=== PATIENT | female | born 1960 | race Two or more races ===

== ENCOUNTER 2021-09-28 05:10 | Inpatient (IN) | payer MEDICAID, OTHER ==
[~2021-09-28] VITALS: Ht 154.9 cm; Wt 57.5 kg
[2021-09-28] MEDS ORDERED: SODIUM CHLORIDE 0.9% 1,000 ML IV ONE (05:30)
[2021-09-28 05:59] LABS: Red Blood Cells 4.37 10^6/uL (4.0-5.20)
[2021-09-28 06:02] LABS: Hematocrit 41.9 % (36.0-46.0); Hemoglobin 12.4 g/dL (12.2-16.2); Mean Corpuscular Hemoglobin 28.5 pg (28.0-32.0); Mean Corpuscular Hgb Conc. 29.7 g/dL (32.0-36.0); Mean Corpuscular Volume 95.8 fL (80.0-100.0); Red Cell Distribution Width 15.2 % (11.8-14.3); White Blood Cell 25.8 10^3/uL (4.4-10.8)
[2021-09-28 06:25] LABS: Albumin 3.4 g/dL (3.4-5.0); Calcium 8.5 mg/dL (8.5-10.1); Potassium 5.5 mmol/L (3.5-5.1)
[2021-09-28 06:33] LABS: Bilirubin, Total 0.7 mg/dL (0.2-1.0)
[2021-09-28 06:47] LABS: Basophils % (manual) 0 (0.0-2.0); Blast Cells 0; Eosinophils % (manual) 0 (0-7); Metamyelocytes % 0; Myelocytes % 0; Promyelocytes % 0; Reactive Lymphocytes 0
[2021-09-28 06:56] LABS: Band Neutrophils % (manual) 10; Lymphocytes % (manual) 9 (10.0-50.0); Monocytes % (manual) 7 (0-12)
[2021-09-28] MEDS ORDERED: SODIUM CHLORIDE 0.9% 1,000 ML IVB ONE (07:15)
[2021-09-28] MEDS ORDERED: DEXTROSE (50%) 50ML SYRG IV PRN (07:15)
[2021-09-28] MEDS ORDERED: INSULIN LANTUS (GLARGINE) 1 /0.01ml (100units/ml) SC ONE (07:15)
[2021-09-28] MEDS: ACCU-CHEK COMFORT CURVE STRIP VI SCH ×11 (08:30→23:42)
[2021-09-28] MEDS: InsuLIN R (HUMAN) 100 UNITS in SODIUM CHL 0.9% 99 ML IV SCH ×2 (08:30→15:13)
[2021-09-28 08:51] LABS: Magnesium 3.1 mg/dL (1.6-2.6); Phosphorus 8.8 mg/dL (2.5-4.90)
[2021-09-28] MEDS: SODIUM CHLORIDE 0.9% 1,000 ML IV SCH ×4 (09:15→19:04)
[2021-09-28 09:40] LABS: Alcohol, Urine < 3.0 mg/dL (0-10); Amphetamine Screen, Urine NEGATIVE (NEGATIVE); Barbiturate Scree,Urine NEGATIVE (NEGATIVE); Benzodiazephine Screen, Urine NEGATIVE (NEGATIVE); Cannabinoid Screen, Urine NEGATIVE (NEGATIVE); Cocaine Screen, Urine NEGATIVE (NEGATIVE); Opiate Scree,Urine NEGATIVE (NEGATIVE); Phencyclidine Screen, Urine NEGATIVE (NEGATIVE)
[2021-09-28 09:42] LABS: Urine Bacteria NONE SEEN /hpf (None Seen); Urine Blood Negative /uL (Negative); Urine Specific Gravity 1.021 (1.001-1.035); Urine WBC <1 /hpf (0 - 5)
[2021-09-28] MEDS ORDERED: SODIUM CHLORIDE 0.9% 1,000 ML IV SCH ×2 (11:15→13:15)
[2021-09-28] MEDS ORDERED: LACTATED RINGER'S 2,000 ML IV ONE (13:45)
[2021-09-28] MEDS ORDERED: SOD CHL 0.9%/ KCL 40MEQ 1,000 ML IV PRN (13:45)
[2021-09-28] MEDS ORDERED: SODIUM CHLORIDE 0.9% 2,000 ML IV ONE (13:45)
[2021-09-28] MEDS ORDERED: D5W/SOD CHLO 0.9% 1,000 ML IV PRN (13:45)
[2021-09-28 13:59] LABS: Calcium 7.8 mg/dL (8.5-10.1); Potassium 3.9 mmol/L (3.5-5.1)
[2021-09-28] MEDS ORDERED: MEROPENEM 1GM IVPB 100 ML IV ONE (14:00)
[2021-09-28] MEDS ORDERED: NITROGLYCERIN 0.4 MG SL TAB SL PRN ×2 (14:00→18:30)
[2021-09-28] MEDS ORDERED: MORPHINE SULFATE INJECTION 2 MG/ML SYRG IV PRN ×2 (14:00→18:30)
[2021-09-28] MEDS ORDERED: PROCHLORPERAZINE EDISYLATE 5 MG/ML 2ML VIAL ONE (14:03)
[2021-09-28 14:08] LABS: BUN/Creatinine Ratio 30.7
[2021-09-28] MEDS ORDERED: InsuLIN REG 1unit/0.01ml Soln (100units/ml) IV ONE (14:15)
[2021-09-28] MEDS ORDERED: PROCHLORPERAZINE EDISYLATE 5 MG/ML 2ML VIAL IV ONE (14:15)
[2021-09-28] MEDS ORDERED: LISI40TA11 PO (15:39)
[2021-09-28] MEDS ORDERED: ASPI1TAB20 PO (15:39)
[2021-09-28] MEDS ORDERED: HYDR-4072 PO (15:39)
[2021-09-28] MEDS ORDERED: INSU100I61 SC (15:39)
[2021-09-28] MEDS ORDERED: HYDR50TA69 PO (15:39)
[2021-09-28] MEDS ORDERED: PREG-110 PO (15:39)
[2021-09-28] MEDS ORDERED: INSU1INJ19 SC (15:39)
[2021-09-28] MEDS ORDERED: AMLO-496 PO (15:39)
[2021-09-28] MEDS ORDERED: MORPHINE SULFATE 4 MG/ML SYR/VIAL IV PRN (17:45)
[2021-09-28] MEDS ORDERED: ONDANSETRON HCL 4 MG/2 ML VIAL ONE (17:53)
[2021-09-28] MEDS ORDERED: MORPHINE SULFATE 4 MG/ML SYR/VIAL ONE (17:53)
[2021-09-28] MEDS ORDERED: SUCRALFATE 1 GM/10 ML ORAL SUSP PO ONE (18:00)
[2021-09-28] MEDS ORDERED: PANTOPRAZOLE 40 MG/10 ML VIAL INJ IV ONE (18:00)
[2021-09-28] MEDS: ONDANSETRON HCL 4 MG/2 ML VIAL IV PRN (18:05)
[2021-09-28] MEDS ORDERED: CALCIUM GLUC 1,000mg/50ml-NS 50 ML IV ONE (18:15)
[2021-09-28] MEDS ORDERED: MAGNESIUM SULFATE 1GM/100ML 100 ML IV ONE (18:15)
[2021-09-28] MEDS ORDERED: ENOXAPARIN SOD 30 MG/0.3 ML SYRINGE SC ONE (18:15)
[2021-09-28] MEDS ORDERED: hydrOXYzine HCL 10 MG TAB PO PRN (18:30)
[2021-09-28] MEDS ORDERED: METOCLOPRAMIDE HCL 5MG/ml INJ 2ml VIAL IV PRN ×2 (18:30→18:45)
[2021-09-28] MEDS ORDERED: ALUM & MAG HYDROX-SIMETH LIQ(MAALOX) 30 ML PO PRN (18:30)
[2021-09-28] MEDS ORDERED: LORazepam 0.5 MG TAB PO PRN (18:30)
[2021-09-28] MEDS ORDERED: DOCUSATE SOD 100 MG CAP PO PRN (18:30)
[2021-09-28 19:25] LABS: Cholesterol 181 mg/dL (< 200)
[2021-09-28 19:28] LABS: HDL Cholesterol 30 mg/dL (40-59); Triglycerides 516 mg/dL (< 150)
[2021-09-28] MEDS ORDERED: HALOPERIDOL LACTATE 5 MG/ML INJ VIAL IM ONE (19:30)
[2021-09-28] MEDS ORDERED: LORazepam 2MG/ML-1ML VIAL IV ONE (19:30)
[2021-09-28 19:32] LABS: Alanine Aminotransferase 24 U/L (13-56); Albumin 2.7 g/dL (3.4-5.0); Anion Gap 12 (5-15); Aspartate Aminotransferase 29 U/L (15-37); Blood Urea Nitrogen 74 mg/dL (7-18); Calcium 6.8 mg/dL (8.5-10.1); Carbon Dioxide 22 mmol/L (21-32); Chloride 111 mmol/L (98-107); GFR African American 29 mL/min; GFR Non-African American 24 mL/min; Sodium 145 mmol/L (136-145)
[2021-09-28 20:08] LABS: Basophils # (auto) 0 10 ^3/uL (0-0.2); Basophils % (auto) 0.4 % (0.0-2.0); Eosinophils # (auto) 0 10 ^3/uL (0-0.8); Eosinophils % (auto) 0.1 % (0.0-7.0); Hematocrit 30.9 % (36.0-46.0); Hemoglobin 10.7 g/dL (12.2-16.2); Lymphocytes # (auto) 0.6 10 ^3/uL (0.4-5.4); Mean Corpuscular Hgb Conc. 34.6 g/dL (32.0-36.0); Mean Corpuscular Volume 83.9 fL (80.0-100.0); Monocytes # (auto) 0.7 10 ^3/uL (0-1.3); Monocytes % (auto) 7.9 % (0.0-12.0); Neutrophils # (auto) 7.7 10 ^3/uL (1.6-8.6); Neutrophils % (auto) 84.6 % (37.0-80.0); Nucleated Red Blood Cells % 0.1 %; Red Blood Cells 3.69 10^6/uL (4.0-5.20); Red Cell Distribution Width 13.5 % (11.8-14.3); White Blood Cell 9.1 10^3/uL (4.4-10.8)
[2021-09-28 20:36] LABS: Alkaline Phosphatase 88 U/L (45-117); Bilirubin, Total 0.3 mg/dL (0.2-1.0); Glucose 439 mg/dL (74-106); Total Protein 5.4 g/dL (6.4-8.2)
[2021-09-28 22:23] LABS: Calcium 7.4 mg/dL (8.5-10.1); Potassium 3.7 mmol/L (3.5-5.1)
[2021-09-28 22:34] LABS: BUN/Creatinine Ratio 38.9
[2021-09-28] MEDS: PANTOPRAZOLE 40 MG/10 ML VIAL INJ IV SCH (23:18)
[2021-09-28] MEDS: ATORVASTATIN 20 MG TAB PO SCH (23:36)
[2021-09-28] MEDS: SUCRALFATE 1 GM/10 ML ORAL SUSP PO SCH (23:36)
[2021-09-28] MEDS: GABAPENTIN 300 MG CAP PO SCH (23:36)
[2021-09-29 00:19] LABS: INR 1.17 (0.9-1.15); Partial Thromboplastin Time 23.2 sec (23.6-33.0)
[2021-09-29] MEDS: SODIUM CHLORIDE 0.9% 1,000 ML IV SCH ×4 (00:49→19:45)
[2021-09-29] MEDS: ACCU-CHEK COMFORT CURVE STRIP VI SCH ×8 (01:15→10:25)
[2021-09-29 02:56] LABS: Calcium 7.8 mg/dL (8.5-10.1); Potassium 3.5 mmol/L (3.5-5.1)
[2021-09-29 03:07] LABS: BUN/Creatinine Ratio 42.9
[2021-09-29] MEDS: LORazepam 2MG/ML-1ML VIAL IV PRN (06:14)
[2021-09-29] MEDS: SUCRALFATE 1 GM/10 ML ORAL SUSP PO SCH ×4 (07:33→23:30)
[2021-09-29] MEDS: HALOPERIDOL LACTATE 5 MG/ML INJ VIAL IM PRN (07:58)
[2021-09-29] MEDS: CALCIUM W/VIT D (600MG/400IU) TAB PO SCH ×2 (08:34→18:26)
[2021-09-29] MEDS: SEVELAMER 800 MG TAB PO SCH ×3 (08:34→18:26)
[2021-09-29] MEDS ORDERED: BENAZEPRIL HCL 10 MG TAB PO SCH (10:00)
[2021-09-29] MEDS ORDERED: ENOXAPARIN SOD 30 MG/0.3 ML SYRINGE SC SCH (10:00)
[2021-09-29] MEDS ORDERED: INSULIN LANTUS (GLARGINE) 1 /0.01ml (100units/ml) SC SCH (10:00)
[2021-09-29] MEDS ORDERED: MIDAZOLAM DRIP 50 mg/50mL 50 ML IV ONE (10:04)
[2021-09-29] MEDS ORDERED: ETOMIDATE (2MG/ML) 20ML VIAL IV ONE ×2 (10:04→10:14)
[2021-09-29] MEDS ORDERED: SUCCINYLCHOLINE CHLORIDE 20 MG/ML 10ML VIAL IV ONE ×2 (10:04→10:15)
[2021-09-29 10:15] VITALS: BP 168/83
[2021-09-29] MEDS: MIDAZOLAM DRIP 50 mg/50mL 50 ML IV SCH ×2 (10:30→11:30)
[2021-09-29] MEDS ORDERED: fentaNYL Drip 2500mCg/250mlNS 250 ML IV ONE (10:31)
[2021-09-29] MEDS: InsuLIN R (HUMAN) 100 UNITS in SODIUM CHL 0.9% 99 ML IV SCH (10:32)
[2021-09-29 12:00] VITALS: BP 130/56
[2021-09-29] MEDS ORDERED: DEXTROSE (50%) 50ML SYRG IV PRN (12:15)
[2021-09-29 12:34] LABS: Hematocrit 29.1 % (36.0-46.0); Hemoglobin 9.9 g/dL (12.2-16.2); Mean Corpuscular Hemoglobin 28.4 pg (28.0-32.0); Mean Corpuscular Hgb Conc. 33.9 g/dL (32.0-36.0); Mean Corpuscular Volume 83.8 fL (80.0-100.0); Red Blood Cells 3.47 10^6/uL (4.0-5.20); Red Cell Distribution Width 13.7 % (11.8-14.3); White Blood Cell 7.1 10^3/uL (4.4-10.8)
[2021-09-29 12:35] LABS: Basophils % (manual) 0 (0.0-2.0); Blast Cells 0; Eosinophils % (manual) 0 (0-7); Promyelocytes % 0; Reactive Lymphocytes 0
[2021-09-29 12:52] LABS: Calcium 7.5 mg/dL (8.5-10.1); Magnesium 2.6 mg/dL (1.6-2.6); Potassium 3.9 mmol/L (3.5-5.1)
[2021-09-29 12:58] LABS: Albumin 2.5 g/dL (3.4-5.0); BUN/Creatinine Ratio 52.8; Bilirubin, Total 0.4 mg/dL (0.2-1.0); Phosphorus 1.9 mg/dL (2.5-4.90); Total Protein 4.9 g/dL (6.4-8.2); Uric Acid 10.8 mg/dL (2.6-6.0)
[2021-09-29 13:01] LABS: % Iron Saturation 13.5 % (15-50)
[2021-09-29] MEDS: ASPirin 81 mg TAB PO SCH (13:13)
[2021-09-29] MEDS: GABAPENTIN 300 MG CAP PO SCH ×2 (13:13→23:30)
[2021-09-29] MEDS: levoFLOXacin 250MG 50 ML IV SCH (13:13)
[2021-09-29] MEDS: PANTOPRAZOLE 40 MG/10 ML VIAL INJ IV SCH ×2 (13:13→23:30)
[2021-09-29 13:52] LABS: Band Neutrophils % (manual) 24; Lymphocytes % (manual) 10 (10.0-50.0); Metamyelocytes % 3; Monocytes % (manual) 4 (0-12); Myelocytes % 2
[2021-09-29 14:02] VITALS: BP 127/58
[2021-09-29 16:05] VITALS: BP 18/56
[2021-09-29] MEDS: InsuLIN REG 1unit/0.01ml Soln (100units/ml) SC SCH (18:31)
[2021-09-29 18:55] VITALS: BP 127/66
[2021-09-29] MEDS: fentaNYL Drip 2500mCg/250mlNS 250 ML IV SCH (19:45)
[2021-09-29] MEDS ORDERED: InsuLIN REG 1unit/0.01ml Soln (100units/ml) SC SCH (22:00)
[2021-09-29] MEDS ORDERED: POTASSIUM PHOSPHATE 44 MEQ in D5W 5% 250 ML IV ONE (22:15)
[2021-09-29 22:40] VITALS: BP 135/70
[2021-09-29] MEDS: D5W/SOD CHL 0.45% 1,000 ML IV SCH (22:45)
[2021-09-29] MEDS: ATORVASTATIN 20 MG TAB PO SCH (23:30)
[2021-09-30] VITALS (11 sets, daily range): BP systolic 95–146; BP diastolic 54–71
[2021-09-30] MEDS: InsuLIN REG 1unit/0.01ml Soln (100units/ml) SC SCH ×4 (06:52→23:49)
[2021-09-30] MEDS: SUCRALFATE 1 GM/10 ML ORAL SUSP PO SCH ×4 (07:16→23:48)
[2021-09-30] MEDS: SEVELAMER 800 MG TAB PO SCH ×3 (08:00→17:44)
[2021-09-30] MEDS: CALCIUM W/VIT D (600MG/400IU) TAB PO SCH ×2 (08:00→18:00)
[2021-09-30 09:10] LABS: Anion Gap 10 (5-15); BUN/Creatinine Ratio 36.8; Blood Urea Nitrogen 60 mg/dL (7-18); Calcium 6.6 mg/dL (8.5-10.1); Carbon Dioxide 21 mmol/L (21-32); Chloride 116 mmol/L (98-107); GFR African American 42 mL/min; GFR Non-African American 34 mL/min; Potassium 4.8 mmol/L (3.5-5.1); Sodium 147 mmol/L (136-145)
[2021-09-30 09:16] LABS: Glucose 457 mg/dL (74-106)
[2021-09-30] MEDS: levoFLOXacin 250MG 50 ML IV SCH (10:00)
[2021-09-30] MEDS: GABAPENTIN 300 MG CAP PO SCH ×2 (10:27→23:48)
[2021-09-30] MEDS: PANTOPRAZOLE 40 MG/10 ML VIAL INJ IV SCH ×2 (10:27→23:45)
[2021-09-30] MEDS: ASPirin 81 mg TAB PO SCH (10:28)
[2021-09-30] MEDS: D5W/SOD CHL 0.45% 1,000 ML IV SCH (11:35)
[2021-09-30 13:54] LABS: Mean Corpuscular Hgb Conc. 34.6 g/dL (32.0-36.0)
[2021-09-30 13:56] LABS: Hematocrit 25.9 % (36.0-46.0); Mean Corpuscular Hemoglobin 30.1 pg (28.0-32.0); Mean Corpuscular Volume 86.9 fL (80.0-100.0); Red Blood Cells 2.99 10^6/uL (4.0-5.20); Red Cell Distribution Width 13.8 % (11.8-14.3); White Blood Cell 7.5 10^3/uL (4.4-10.8)
[2021-09-30] MEDS: MIDAZOLAM DRIP 50 mg/50mL 50 ML IV SCH (14:05)
[2021-09-30 14:07] LABS: Basophils % (manual) 0 (0.0-2.0); Blast Cells 0; Eosinophils % (manual) 0 (0-7); Metamyelocytes % 0; Myelocytes % 0; Promyelocytes % 0; Reactive Lymphocytes 0
[2021-09-30 15:13] LABS: Band Neutrophils % (manual) 13; Lymphocytes % (manual) 12 (10.0-50.0); Monocytes % (manual) 8 (0-12)
[2021-09-30] MEDS: fentaNYL Drip 2500mCg/250mlNS 250 ML IV SCH (19:45)
[2021-09-30] MEDS ORDERED: DEXTROSE (50%) 50ML SYRG IV PRN (20:15)
[2021-09-30] MEDS: INSULIN LANTUS (GLARGINE) 1 /0.01ml (100units/ml) SC SCH (23:46)
[2021-09-30] MEDS: ATORVASTATIN 20 MG TAB PO SCH (23:48)
[2021-09-30] MEDS: ACCU-CHEK COMFORT CURVE STRIP VI SCH (23:49)
[2021-09-30] MEDS: LACTATED RINGER'S 1,000 ML IV SCH (23:51)
[2021-10-01] VITALS (10 sets, daily range): BP systolic 94–142; BP diastolic 54–75
[2021-10-01] MEDS: ACCU-CHEK COMFORT CURVE STRIP VI SCH ×5 (04:14→20:41)
[2021-10-01] MEDS: InsuLIN REG 1unit/0.01ml Soln (100units/ml) SC SCH ×5 (04:15→20:41)
[2021-10-01] MEDS ORDERED: NOREPINEPHRINE 8 MG/250ML KIT 250 ML IV ONE (05:09)
[2021-10-01] MEDS: NOREPINEPHRINE 8 MG/250ML KIT 250 ML IV SCH (05:25)
[2021-10-01] MEDS: SUCRALFATE 1 GM/10 ML ORAL SUSP PO SCH ×4 (07:45→22:45)
[2021-10-01] MEDS: CALCIUM W/VIT D (600MG/400IU) TAB PO SCH ×2 (07:45→18:02)
[2021-10-01 07:47] LABS: BUN/Creatinine Ratio 25.1; Calcium 7.5 mg/dL (8.5-10.1); Potassium 3.8 mmol/L (3.5-5.1)
[2021-10-01] MEDS: ASPirin 81 mg TAB PO SCH (10:48)
[2021-10-01] MEDS: PANTOPRAZOLE 40 MG/10 ML VIAL INJ IV SCH ×2 (10:48→22:45)
[2021-10-01] MEDS: GABAPENTIN 300 MG CAP PO SCH ×2 (10:48→22:45)
[2021-10-01] MEDS: levoFLOXacin 250MG 50 ML IV SCH (10:48)
[2021-10-01] MEDS: LACTATED RINGER'S 1,000 ML IV SCH (16:01)
[2021-10-01] MEDS: D5W 5% 1,000 ML IV SCH (16:30)
[2021-10-01 18:38] LABS: Urine Bacteria NONE SEEN /hpf (None Seen); Urine Blood 3+ /uL (Negative); Urine Budding Yeast MANY /hpf (None Seen); Urine Hyaline Cast FEW /lpf (0 - 2); Urine WBC 7 /hpf (0 - 5)
[2021-10-01 18:46] LABS: Protein, Urine 97.2 mg/dL (0.0-11.9)
[2021-10-01] MEDS: MIDAZOLAM DRIP 50 mg/50mL 50 ML IV SCH (19:41)
[2021-10-01] MEDS: ATORVASTATIN 20 MG TAB PO SCH (22:45)
[2021-10-01] MEDS: INSULIN LANTUS (GLARGINE) 1 /0.01ml (100units/ml) SC SCH (22:45)
[2021-10-02] MEDS: ACCU-CHEK COMFORT CURVE STRIP VI SCH ×6 (02:29→21:24)
[2021-10-02] MEDS: InsuLIN REG 1unit/0.01ml Soln (100units/ml) SC SCH ×6 (02:30→21:25)
[2021-10-02] MEDS: MIDAZOLAM DRIP 50 mg/50mL 50 ML IV SCH (02:32)
[2021-10-02 02:40] VITALS: BP 143/74
[2021-10-02] MEDS: D5W 5% 1,000 ML IV SCH ×3 (02:58→22:14)
[2021-10-02] MEDS: fentaNYL Drip 2500mCg/250mlNS 250 ML IV SCH ×2 (05:05→19:45)
[2021-10-02 06:47] VITALS: BP 143/77
[2021-10-02 07:30] LABS: Potassium 4.2 mmol/L (3.5-5.1)
[2021-10-02 07:37] LABS: BUN/Creatinine Ratio 25.4; Calcium 7.6 mg/dL (8.5-10.1)
[2021-10-02] MEDS: SUCRALFATE 1 GM/10 ML ORAL SUSP PO SCH ×4 (07:51→22:12)
[2021-10-02] MEDS: NOREPINEPHRINE 8 MG/250ML KIT 250 ML IV SCH (08:00)
[2021-10-02] MEDS: CALCIUM W/VIT D (600MG/400IU) TAB PO SCH ×2 (08:20→17:43)
[2021-10-02] MEDS: ASPirin 81 mg TAB PO SCH (10:34)
[2021-10-02] MEDS: levoFLOXacin 250MG 50 ML IV SCH (10:34)
[2021-10-02] MEDS: PANTOPRAZOLE 40 MG/10 ML VIAL INJ IV SCH ×2 (10:34→22:12)
[2021-10-02] MEDS: GABAPENTIN 300 MG CAP PO SCH ×2 (10:34→22:13)
[2021-10-02 10:50] VITALS: BP 125/72
[2021-10-02 13:49] VITALS: BP 94/57
[2021-10-02 18:10] VITALS: BP 98/62
[2021-10-02 22:12] VITALS: BP 142/76
[2021-10-02] MEDS: INSULIN LANTUS (GLARGINE) 1 /0.01ml (100units/ml) SC SCH (22:13)
[2021-10-02] MEDS: ATORVASTATIN 20 MG TAB PO SCH (22:13)
[2021-10-03] MEDS: ACCU-CHEK COMFORT CURVE STRIP VI SCH ×6 (00:14→19:30)
[2021-10-03] MEDS: InsuLIN REG 1unit/0.01ml Soln (100units/ml) SC SCH ×6 (00:17→19:29)
[2021-10-03] MEDS: NOREPINEPHRINE 8 MG/250ML KIT 250 ML IV SCH (05:15)
[2021-10-03] MEDS: SUCRALFATE 1 GM/10 ML ORAL SUSP PO SCH ×4 (05:23→22:20)
[2021-10-03 06:32] VITALS: BP 122/72
[2021-10-03 09:14] LABS: BUN/Creatinine Ratio 25.3; Calcium 7.7 mg/dL (8.5-10.1); Potassium 4.4 mmol/L (3.5-5.1)
[2021-10-03 10:25] VITALS: BP 128/68
[2021-10-03] MEDS: CALCIUM W/VIT D (600MG/400IU) TAB PO SCH ×2 (10:47→17:34)
[2021-10-03] MEDS: D5W 5% 1,000 ML IV SCH ×2 (10:48→17:34)
[2021-10-03] MEDS: levoFLOXacin 250MG 50 ML IV SCH (10:48)
[2021-10-03] MEDS: FLUCONAZOLE 200MG/100ML 100 ML IV SCH ×2 (10:48→11:14)
[2021-10-03] MEDS: GABAPENTIN 300 MG CAP PO SCH ×2 (10:49→22:21)
[2021-10-03] MEDS: PANTOPRAZOLE 40 MG/10 ML VIAL INJ IV SCH ×2 (10:49→22:20)
[2021-10-03] MEDS: ASPirin 81 mg TAB PO SCH (10:49)
[2021-10-03] MEDS: MIDAZOLAM DRIP 50 mg/50mL 50 ML IV SCH (11:24)
[2021-10-03 12:58] LABS: Hematocrit 30.7 % (36.0-46.0); Hemoglobin 10.3 g/dL (12.2-16.2); Mean Corpuscular Hemoglobin 28.8 pg (28.0-32.0); Mean Corpuscular Hgb Conc. 33.5 g/dL (32.0-36.0); Mean Corpuscular Volume 86.1 fL (80.0-100.0); Red Blood Cells 3.56 10^6/uL (4.0-5.20); White Blood Cell 7.5 10^3/uL (4.4-10.8)
[2021-10-03 13:02] LABS: Basophils % (manual) 0 (0.0-2.0); Blast Cells 0; Eosinophils % (manual) 0 (0-7); Metamyelocytes % 0; Myelocytes % 0; Promyelocytes % 0; Reactive Lymphocytes 0
[2021-10-03 13:42] LABS: Band Neutrophils % (manual) 3; Lymphocytes % (manual) 15 (10.0-50.0); Monocytes % (manual) 3 (0-12)
[2021-10-03 13:50] VITALS: BP 148/83
[2021-10-03 18:29] VITALS: BP 177/78
[2021-10-03] MEDS ORDERED: GABAPENTIN 300 MG CAP ONE (22:19)
[2021-10-03] MEDS ORDERED: ATORVASTATIN 20 MG TAB ONE (22:19)
[2021-10-03] MEDS ORDERED: PANTOPRAZOLE 40 MG/10 ML VIAL INJ IV ONE (22:20)
[2021-10-03] MEDS ORDERED: INSULIN LANTUS (GLARGINE) 1 /0.01ml (100units/ml) SC ONE (22:20)
[2021-10-03] MEDS ORDERED: SUCRALFATE 1 GM/10 ML ORAL SUSP ONE (22:20)
[2021-10-03] MEDS: ATORVASTATIN 20 MG TAB PO SCH (22:20)
[2021-10-03] MEDS: INSULIN LANTUS (GLARGINE) 1 /0.01ml (100units/ml) SC SCH (22:22)
[2021-10-03 22:24] VITALS: BP 150/80
[2021-10-04] VITALS (14 sets, daily range): BP systolic 109–178; BP diastolic 57–108
[2021-10-04] MEDS: ACCU-CHEK COMFORT CURVE STRIP VI SCH ×6 (00:19→21:03)
[2021-10-04] MEDS: InsuLIN REG 1unit/0.01ml Soln (100units/ml) SC SCH ×6 (00:20→21:05)
[2021-10-04] MEDS ORDERED: DexmedeTOMIDine 4 ML IV ONE (04:05)
[2021-10-04] MEDS: D5W 5% 1,000 ML IV SCH ×2 (04:57→18:23)
[2021-10-04] MEDS ORDERED: LORazepam 2MG/ML-1ML VIAL ONE (06:00)
[2021-10-04] MEDS: LORazepam 2MG/ML-1ML VIAL IV PRN ×2 (06:00→21:02)
[2021-10-04] MEDS ORDERED: MIDAZOLAM HCL 10 ML IV ONE (06:24)
[2021-10-04] MEDS: SUCRALFATE 1 GM/10 ML ORAL SUSP PO SCH ×5 (07:00→21:28)
[2021-10-04 08:33] LABS: Potassium 3.7 mmol/L (3.5-5.1)
[2021-10-04 08:41] LABS: BUN/Creatinine Ratio 27.7; Calcium 7.4 mg/dL (8.5-10.1)
[2021-10-04] MEDS: FLUCONAZOLE 200MG/100ML 100 ML IV SCH ×2 (11:00→12:06)
[2021-10-04] MEDS: CALCIUM W/VIT D (600MG/400IU) TAB PO SCH ×2 (12:06→18:00)
[2021-10-04] MEDS: PANTOPRAZOLE 40 MG/10 ML VIAL INJ IV SCH ×2 (12:07→22:00)
[2021-10-04] MEDS: ASPirin 81 mg TAB PO SCH (12:07)
[2021-10-04] MEDS: levoFLOXacin 250MG 50 ML IV SCH (12:07)
[2021-10-04] MEDS: GABAPENTIN 300 MG CAP PO SCH ×2 (12:08→22:00)
[2021-10-04] MEDS: MIDAZOLAM DRIP 50 mg/50mL 50 ML IV SCH (18:20)
[2021-10-04] MEDS: HALOPERIDOL LACTATE 5 MG/ML INJ VIAL IM PRN (20:01)
[2021-10-04] MEDS: ATORVASTATIN 20 MG TAB PO SCH (22:00)
[2021-10-04] MEDS: INSULIN LANTUS (GLARGINE) 1 /0.01ml (100units/ml) SC SCH (22:00)
[2021-10-04] MEDS ORDERED: PROPOFOL 100 ML IV ONE (23:34)
[2021-10-05] MEDS: ACCU-CHEK COMFORT CURVE STRIP VI SCH ×6 (00:27→21:06)
[2021-10-05] MEDS: InsuLIN REG 1unit/0.01ml Soln (100units/ml) SC SCH ×6 (00:29→20:44)
[2021-10-05] MEDS: D5W 5% 1,000 ML IV SCH ×2 (00:32→10:30)
[2021-10-05] MEDS ORDERED: PROPOFOL 100 ML IV SCH (00:45)
[2021-10-05 02:00] VITALS: BP 131/87
[2021-10-05] MEDS ORDERED: DexmedeTOMIDine 4 ML IV ONE (04:43)
[2021-10-05 06:35] VITALS: BP 144/68
[2021-10-05] MEDS: SUCRALFATE 1 GM/10 ML ORAL SUSP PO SCH ×4 (07:00→23:02)
[2021-10-05] MEDS: LORazepam 2MG/ML-1ML VIAL IV PRN ×2 (07:46→20:25)
[2021-10-05] MEDS: CALCIUM W/VIT D (600MG/400IU) TAB PO SCH ×2 (07:46→16:34)
[2021-10-05 07:55] LABS: Calcium 8.1 mg/dL (8.5-10.1); Potassium 3.4 mmol/L (3.5-5.1)
[2021-10-05 10:25] VITALS: BP 125/93
[2021-10-05] MEDS: MIDAZOLAM DRIP 50 mg/50mL 50 ML IV SCH (10:30)
[2021-10-05] MEDS: FLUCONAZOLE 200MG/100ML 100 ML IV SCH (11:15)
[2021-10-05] MEDS: ASPirin 81 mg TAB PO SCH (11:15)
[2021-10-05] MEDS: PANTOPRAZOLE 40 MG/10 ML VIAL INJ IV SCH ×2 (11:15→23:02)
[2021-10-05] MEDS: levoFLOXacin 250MG 50 ML IV SCH (11:15)
[2021-10-05] MEDS: GABAPENTIN 300 MG CAP PO SCH (11:15)
[2021-10-05] MEDS: HALOPERIDOL LACTATE 5 MG/ML INJ VIAL IM PRN ×2 (11:29→23:14)
[2021-10-05 14:30] VITALS: BP 156/71
[2021-10-05] MEDS ORDERED: Glucerna 1.2 Cal 1Liter BOTTLE GT SCH (17:30)
[2021-10-05 18:44] VITALS: BP 131/65
[2021-10-05] MEDS ORDERED: metroNIDAZOLE 500MG/100ML 100 ML IV SCH (22:00)
[2021-10-05 22:03] VITALS: BP 136/67
[2021-10-05] MEDS: INSULIN LANTUS (GLARGINE) 1 /0.01ml (100units/ml) SC SCH (23:02)
[2021-10-05] MEDS: ATORVASTATIN 20 MG TAB PO SCH (23:12)
[2021-10-06] MEDS: ACCU-CHEK COMFORT CURVE STRIP VI SCH ×6 (00:28→19:46)
[2021-10-06] MEDS: InsuLIN REG 1unit/0.01ml Soln (100units/ml) SC SCH ×6 (00:30→19:45)
[2021-10-06] MEDS: PROPOFOL 100 ML IV SCH (01:11)
[2021-10-06 01:50] VITALS: BP 135/67
[2021-10-06] MEDS: D5W 5% 1,000 ML IV SCH (03:00)
[2021-10-06 05:52] VITALS: BP 148/66
[2021-10-06] MEDS: metroNIDAZOLE 500 MG TAB PO SCH ×3 (06:40→21:44)
[2021-10-06 06:53] LABS: Hematocrit 24.7 % (36.0-46.0); Hemoglobin 8.7 g/dL (12.2-16.2); Mean Corpuscular Hgb Conc. 35.5 g/dL (32.0-36.0); Mean Corpuscular Volume 84.5 fL (80.0-100.0); Red Blood Cells 2.92 10^6/uL (4.0-5.20); Red Cell Distribution Width 13.6 % (11.8-14.3)
[2021-10-06 07:05] LABS: Basophils % (manual) 0 (0.0-2.0); Blast Cells 0; Metamyelocytes % 0; Myelocytes % 0; Promyelocytes % 0; Reactive Lymphocytes 0
[2021-10-06 07:10] LABS: Albumin 1.6 g/dL (3.4-5.0); Calcium 7.7 mg/dL (8.5-10.1); Magnesium 2.2 mg/dL (1.6-2.6); Potassium 3.6 mmol/L (3.5-5.1)
[2021-10-06 07:13] LABS: BUN/Creatinine Ratio 20.7; Bilirubin, Total 0.4 mg/dL (0.2-1.0)
[2021-10-06] MEDS: SUCRALFATE 1 GM/10 ML ORAL SUSP PO SCH ×4 (07:34→21:44)
[2021-10-06 07:41] LABS: Band Neutrophils % (manual) 21; Eosinophils % (manual) 3 (0-7); Lymphocytes % (manual) 14 (10.0-50.0); Monocytes % (manual) 3 (0-12)
[2021-10-06] MEDS: CALCIUM W/VIT D (600MG/400IU) TAB PO SCH ×2 (09:00→18:00)
[2021-10-06] MEDS: hydrALAZINE HCL 20 MG/ML VL IV PRN (09:06)
[2021-10-06] MEDS: LORazepam 2MG/ML-1ML VIAL IV PRN ×2 (10:20→21:47)
[2021-10-06 10:22] VITALS: BP 149/67
[2021-10-06] MEDS: MIDAZOLAM DRIP 50 mg/50mL 50 ML IV SCH (10:30)
[2021-10-06] MEDS: FLUCONAZOLE 200MG/100ML 100 ML IV SCH ×2 (10:40→11:40)
[2021-10-06] MEDS: PANTOPRAZOLE 40 MG/10 ML VIAL INJ IV SCH ×2 (10:40→21:44)
[2021-10-06] MEDS: ASPirin 81 mg TAB PO SCH (10:40)
[2021-10-06] MEDS: levoFLOXacin 250MG 50 ML IV SCH (10:40)
[2021-10-06] MEDS: HALOPERIDOL LACTATE 5 MG/ML INJ VIAL IM PRN (11:20)
[2021-10-06 12:51] LABS: Hepatitis A Ab IgM Negative
[2021-10-06 12:54] LABS: Hepatitis B Core IgM Negative
[2021-10-06] MEDS ORDERED: fentaNYL Drip 2500mCg/250mlNS 250 ML IV SCH (13:15)
[2021-10-06] MEDS ORDERED: fentaNYL Drip 2500mCg/250mlNS 250 ML IV ONE (13:17)
[2021-10-06 13:40] LABS: Hepatitis C Antibody Positive (Negative)
[2021-10-06 14:08] VITALS: BP 153/66
[2021-10-06] MEDS: ATORVASTATIN 20 MG TAB PO SCH (21:44)
[2021-10-06] MEDS: INSULIN LANTUS (GLARGINE) 1 /0.01ml (100units/ml) SC SCH (21:45)
[2021-10-07] MEDS: ACCU-CHEK COMFORT CURVE STRIP VI SCH ×5 (00:39→17:40)
[2021-10-07] MEDS: InsuLIN REG 1unit/0.01ml Soln (100units/ml) SC SCH ×6 (00:39→20:00)
[2021-10-07] MEDS: PROPOFOL 100 ML IV SCH (00:45)
[2021-10-07] MEDS: hydrALAZINE HCL 20 MG/ML VL IV PRN ×3 (01:07→23:41)
[2021-10-07] MEDS ORDERED: METOPROLOL SUCCINATE XL 50 MG TAB PO ONE (02:00)
[2021-10-07] MEDS ORDERED: METOPROLOL TARTRATE 1MG/1ML-5ML VIAL IV ONE ×2 (04:00→10:00)
[2021-10-07] MEDS: CALCIUM W/VIT D (600MG/400IU) TAB PO SCH ×2 (09:45→18:00)
[2021-10-07] MEDS: levoFLOXacin 250MG 50 ML IV SCH (10:00)
[2021-10-07] MEDS ORDERED: METOPROLOL SUCCINATE XL 50 MG TAB PO SCH (10:00)
[2021-10-07] MEDS: PANTOPRAZOLE 40 MG/10 ML VIAL INJ IV SCH (10:06)
[2021-10-07] MEDS: ASPirin 81 mg TAB PO SCH (10:06)
[2021-10-07] MEDS: FLUCONAZOLE 200MG/100ML 100 ML IV SCH ×2 (10:06→12:02)
[2021-10-07 11:31] LABS: BUN/Creatinine Ratio 21.7; Calcium 7.7 mg/dL (8.5-10.1); Potassium 3.2 mmol/L (3.5-5.1)
[2021-10-07] MEDS: POTASSIUM CHL 20MEQ/50ML 50 ML IV SCH ×2 (14:19→16:45)
[2021-10-07] MEDS: SUCRALFATE 1 GM/10 ML ORAL SUSP PO SCH ×3 (17:00→22:00)
[2021-10-07] MEDS: metroNIDAZOLE 500MG/100ML 100 ML IV SCH (18:00)
[2021-10-07] MEDS: ATORVASTATIN 20 MG TAB PO SCH (22:00)
[2021-10-08] MEDS: ACCU-CHEK COMFORT CURVE STRIP VI SCH ×7 (00:05→20:23)
[2021-10-08] MEDS: metroNIDAZOLE 500MG/100ML 100 ML IV SCH ×4 (00:15→21:34)
[2021-10-08] MEDS: PANTOPRAZOLE 40 MG/10 ML VIAL INJ IV SCH ×3 (00:15→21:34)
[2021-10-08] MEDS: INSULIN LANTUS (GLARGINE) 1 /0.01ml (100units/ml) SC SCH ×2 (00:17→23:21)
[2021-10-08] MEDS: InsuLIN REG 1unit/0.01ml Soln (100units/ml) SC SCH ×6 (00:33→20:29)
[2021-10-08] MEDS: SUCRALFATE 1 GM/10 ML ORAL SUSP PO SCH ×4 (05:05→21:34)
[2021-10-08 06:56] LABS: Albumin 1.9 g/dL (3.4-5.0); Calcium 7.7 mg/dL (8.5-10.1); Magnesium 2.2 mg/dL (1.6-2.6); Potassium 3.3 mmol/L (3.5-5.1)
[2021-10-08 06:59] LABS: BUN/Creatinine Ratio 23.5; Bilirubin, Total 0.6 mg/dL (0.2-1.0); Total Protein 5.5 g/dL (6.4-8.2)
[2021-10-08] MEDS: CALCIUM W/VIT D (600MG/400IU) TAB PO SCH ×2 (08:00→17:37)
[2021-10-08] MEDS: ASPirin 81 mg TAB PO SCH (10:00)
[2021-10-08] MEDS: FLUCONAZOLE 200MG/100ML 100 ML IV SCH ×3 (10:00→12:15)
[2021-10-08] MEDS: levoFLOXacin 500MG 100 ML IV SCH (10:00)
[2021-10-08] MEDS ORDERED: POTASSIUM CHLORIDE 20 MEQ, LIDOCAINE 1% (LOCAL ANESTH.) 2 ML in SODIUM CHL 0.9% 100 ML IV ONE (11:30)
[2021-10-08 12:42] VITALS: BP 136/69
[2021-10-08] MEDS ORDERED: METF-370 PO (12:52)
[2021-10-08] MEDS ORDERED: MAGNESIUM SULFATE 1GM/100ML 100 ML IV ONE (14:00)
[2021-10-08] MEDS: POTASSIUM CHLORIDE 40 MEQ in D5W 5% 1,000 ML IV SCH ×2 (15:20→21:33)
[2021-10-08 17:00] VITALS: BP 135/68
[2021-10-08] MEDS: ATORVASTATIN 20 MG TAB PO SCH (21:34)
[2021-10-08 22:00] VITALS: BP 138/69
[2021-10-09] MEDS: ACCU-CHEK COMFORT CURVE STRIP VI SCH ×6 (00:52→20:32)
[2021-10-09] MEDS: InsuLIN REG 1unit/0.01ml Soln (100units/ml) SC SCH ×6 (04:30→20:36)
[2021-10-09] MEDS: metroNIDAZOLE 500MG/100ML 100 ML IV SCH ×3 (05:31→22:18)
[2021-10-09] MEDS: SUCRALFATE 1 GM/10 ML ORAL SUSP PO SCH ×4 (05:31→22:00)
[2021-10-09 06:25] VITALS: BP 164/76
[2021-10-09 07:29] LABS: BUN/Creatinine Ratio 26.5; Calcium 7.2 mg/dL (8.5-10.1); Magnesium 2.3 mg/dL (1.6-2.6); Potassium 3.5 mmol/L (3.5-5.1)
[2021-10-09] MEDS: POTASSIUM CHLORIDE 40 MEQ in D5W 5% 1,000 ML IV SCH ×2 (07:54→18:53)
[2021-10-09] MEDS: CALCIUM W/VIT D (600MG/400IU) TAB PO SCH ×2 (08:24→17:50)
[2021-10-09 09:00] VITALS: BP 151/80
[2021-10-09] MEDS: levoFLOXacin 500MG 100 ML IV SCH (09:33)
[2021-10-09] MEDS: FLUCONAZOLE 200MG/100ML 100 ML IV SCH ×2 (09:33→11:49)
[2021-10-09] MEDS: PANTOPRAZOLE 40 MG/10 ML VIAL INJ IV SCH ×2 (09:34→22:19)
[2021-10-09] MEDS: ASPirin 81 mg TAB PO SCH (09:35)
[2021-10-09 13:00] VITALS: BP 117/68
[2021-10-09] MEDS: MORPHINE SULFATE INJECTION 2 MG/ML SYRG IV PRN (16:18)
[2021-10-09 17:00] VITALS: BP 108/59
[2021-10-09] MEDS: ONDANSETRON HCL 4 MG/2 ML VIAL IV PRN (20:40)
[2021-10-09] MEDS: ATORVASTATIN 20 MG TAB PO SCH (22:00)
[2021-10-09 22:19] VITALS: BP 107/62
[2021-10-09] MEDS: INSULIN LANTUS (GLARGINE) 1 /0.01ml (100units/ml) SC SCH (22:29)
[2021-10-10] VITALS (11 sets, daily range): BP systolic 96–167; BP diastolic 56–87
[2021-10-10] MEDS: ACCU-CHEK COMFORT CURVE STRIP VI SCH ×6 (00:18→21:52)
[2021-10-10] MEDS: InsuLIN REG 1unit/0.01ml Soln (100units/ml) SC SCH ×5 (00:29→22:02)
[2021-10-10 00:56] LABS: Hematocrit 19.3 % (36.0-46.0)
[2021-10-10 01:15] LABS: Hemoglobin 6.3 g/dL (12.2-16.2)
[2021-10-10 04:48] LABS: Basophils # (auto) 0.1 10 ^3/uL (0-0.2); Monocytes # (auto) 1.2 10 ^3/uL (0-1.3)
[2021-10-10 04:52] LABS: Basophils % (auto) 0.8 % (0.0-2.0); Eosinophils # (auto) 0.1 10 ^3/uL (0-0.8); Lymphocytes # (auto) 1.6 10 ^3/uL (0.4-5.4); Lymphocytes % (auto) 10.7 % (10.0-50.0); Mean Corpuscular Hemoglobin 28.8 pg (28.0-32.0); Mean Corpuscular Hgb Conc. 34.5 g/dL (32.0-36.0); Mean Corpuscular Volume 83.5 fL (80.0-100.0); Monocytes % (auto) 8.1 % (0.0-12.0); Neutrophils # (auto) 11.9 10 ^3/uL (1.6-8.6); Neutrophils % (auto) 79.4 % (37.0-80.0); Red Blood Cells 2.16 10^6/uL (4.0-5.20); Red Cell Distribution Width 14.2 % (11.8-14.3)
[2021-10-10 05:19] LABS: Calcium 6.7 mg/dL (8.5-10.1); Potassium 4.6 mmol/L (3.5-5.1)
[2021-10-10 05:21] LABS: BUN/Creatinine Ratio 17.6
[2021-10-10 05:39] LABS: Hemoglobin 6.2 g/dL (12.2-16.2)
[2021-10-10] MEDS: metroNIDAZOLE 500MG/100ML 100 ML IV SCH ×3 (06:49→22:04)
[2021-10-10] MEDS: SUCRALFATE 1 GM/10 ML ORAL SUSP PO SCH ×4 (06:51→22:00)
[2021-10-10] MEDS: POTASSIUM CHLORIDE 40 MEQ in D5W 5% 1,000 ML IV SCH ×2 (07:38→15:04)
[2021-10-10] MEDS: CALCIUM W/VIT D (600MG/400IU) TAB PO SCH ×2 (08:00→17:36)
[2021-10-10] MEDS: PANTOPRAZOLE 40mg/50ML NS AE 50 ML IV SCH ×4 (08:58→22:50)
[2021-10-10] MEDS: OCTREOTIDE ACETATE 500 MCG in SODIUM CHL 0.9% 99 ML IV SCH ×2 (09:06→17:26)
[2021-10-10] MEDS: ASPirin 81 mg TAB PO SCH (10:36)
[2021-10-10] MEDS: levoFLOXacin 500MG 100 ML IV SCH (10:36)
[2021-10-10] MEDS: FLUCONAZOLE 200MG/100ML 100 ML IV SCH ×2 (12:30→16:50)
[2021-10-10 13:09] LABS: Hemoglobin 10.2 g/dL (12.2-16.2)
[2021-10-10] MEDS: ATORVASTATIN 20 MG TAB PO SCH (22:00)
[2021-10-10] MEDS: INSULIN LANTUS (GLARGINE) 1 /0.01ml (100units/ml) SC SCH (22:21)
[2021-10-11] MEDS: ACCU-CHEK COMFORT CURVE STRIP VI SCH ×6 (00:42→20:15)
[2021-10-11] MEDS: POTASSIUM CHLORIDE 40 MEQ in D5W 5% 1,000 ML IV SCH ×3 (00:49→22:13)
[2021-10-11] MEDS: OCTREOTIDE ACETATE 500 MCG in SODIUM CHL 0.9% 99 ML IV SCH ×2 (04:07→14:00)
[2021-10-11] MEDS: PANTOPRAZOLE 40mg/50ML NS AE 50 ML IV SCH ×4 (04:07→23:30)
[2021-10-11] MEDS: InsuLIN REG 1unit/0.01ml Soln (100units/ml) SC SCH ×6 (04:17→20:00)
[2021-10-11 05:00] VITALS: BP 149/83
[2021-10-11] MEDS: metroNIDAZOLE 500MG/100ML 100 ML IV SCH ×2 (05:01→14:00)
[2021-10-11 05:05] LABS: INR 1.62 (0.9-1.15); Partial Thromboplastin Time 29.9 sec (23.6-33.0)
[2021-10-11] MEDS: SUCRALFATE 1 GM/10 ML ORAL SUSP PO SCH ×4 (06:55→22:13)
[2021-10-11] MEDS: CALCIUM W/VIT D (600MG/400IU) TAB PO SCH ×2 (08:00→18:01)
[2021-10-11 08:59] VITALS: BP 146/82
[2021-10-11] MEDS ORDERED: LIDOCAINE VISCOUS 2% 15ML UD ONE (09:09)
[2021-10-11] MEDS ORDERED: diphenhdrAMINE HCL 50 MG/1 ML VL ONE (09:10)
[2021-10-11] MEDS ORDERED: fentaNYL CITRATE 100 MCG/2 ML VL ONE (09:10)
[2021-10-11] MEDS: ASPirin 81 mg TAB PO SCH (09:43)
[2021-10-11] MEDS: FLUCONAZOLE 200MG/100ML 100 ML IV SCH ×2 (10:00→11:00)
[2021-10-11] MEDS: levoFLOXacin 250MG 50 ML IV SCH (10:00)
[2021-10-11] MEDS: MIDAZOLAM HCL 5 MG/ML-1ML VIAL ONE ×2 (11:16→11:19)
[2021-10-11] MEDS ORDERED: fentaNYL CITRATE 100 MCG/2 ML VL IV ONE (11:19)
[2021-10-11 14:02] LABS: Basophils # (auto) 0.1 10 ^3/uL (0-0.2); Basophils % (auto) 0.8 % (0.0-2.0); Eosinophils # (auto) 0.1 10 ^3/uL (0-0.8); Eosinophils % (auto) 1.2 % (0.0-7.0); Hematocrit 29.2 % (36.0-46.0); Lymphocytes # (auto) 1.1 10 ^3/uL (0.4-5.4); Lymphocytes % (auto) 9.3 % (10.0-50.0); Mean Corpuscular Hemoglobin 28.3 pg (28.0-32.0); Mean Corpuscular Volume 83.1 fL (80.0-100.0); Monocytes # (auto) 0.9 10 ^3/uL (0-1.3); Monocytes % (auto) 7.2 % (0.0-12.0); Neutrophils % (auto) 81.5 % (37.0-80.0); Nucleated Red Blood Cells % 0.1 %; Red Blood Cells 3.52 10^6/uL (4.0-5.20); Red Cell Distribution Width 15.3 % (11.8-14.3); White Blood Cell 12.2 10^3/uL (4.4-10.8)
[2021-10-11 16:22] VITALS: BP 119/74
[2021-10-11] MEDS ORDERED: VANCOMYCIN HCL 125MG/5ML ORAL SOL PO ONE (18:45)
[2021-10-11] MEDS: HYDROcodone-ACET 5/325MG TAB PO PRN ×3 (20:12→23:25)
[2021-10-11 22:00] VITALS: BP 148/71
[2021-10-11] MEDS: INSULIN LANTUS (GLARGINE) 1 /0.01ml (100units/ml) SC SCH (22:00)
[2021-10-11] MEDS: FLORASTOR (S. BOULARDII) 250 MG CAP PO SCH (22:13)
[2021-10-11] MEDS: ATORVASTATIN 20 MG TAB PO SCH (22:14)
[2021-10-11] MEDS: VANCOMYCIN HCL 125MG/5ML ORAL SOL PO SCH (22:18)
[2021-10-12] MEDS: POTASSIUM CHLORIDE 40 MEQ in D5W 5% 1,000 ML IV SCH ×2 (00:13→11:47)
[2021-10-12] MEDS: PANTOPRAZOLE 40mg/50ML NS AE 50 ML IV SCH ×5 (00:30→19:36)
[2021-10-12] MEDS: OCTREOTIDE ACETATE 500 MCG in SODIUM CHL 0.9% 99 ML IV SCH ×3 (00:31→05:28)
[2021-10-12] MEDS: ACCU-CHEK COMFORT CURVE STRIP VI SCH ×6 (00:32→22:46)
[2021-10-12] MEDS: InsuLIN REG 1unit/0.01ml Soln (100units/ml) SC SCH ×5 (00:49→17:15)
[2021-10-12 05:00] VITALS: BP 155/85
[2021-10-12] MEDS: VANCOMYCIN HCL 125MG/5ML ORAL SOL PO SCH ×4 (05:26→21:27)
[2021-10-12] MEDS: MORPHINE SULFATE INJECTION 2 MG/ML SYRG IV PRN (06:31)
[2021-10-12] MEDS: SUCRALFATE 1 GM/10 ML ORAL SUSP PO SCH ×4 (07:00→21:27)
[2021-10-12 07:07] LABS: Basophils # (auto) 0.1 10 ^3/uL (0-0.2); Basophils % (auto) 0.8 % (0.0-2.0); Eosinophils # (auto) 0.2 10 ^3/uL (0-0.8); Eosinophils % (auto) 1.7 % (0.0-7.0); Hematocrit 29.4 % (36.0-46.0); Hemoglobin 10.2 g/dL (12.2-16.2); Lymphocytes # (auto) 0.9 10 ^3/uL (0.4-5.4); Lymphocytes % (auto) 8.9 % (10.0-50.0); Mean Corpuscular Hemoglobin 28.9 pg (28.0-32.0); Mean Corpuscular Hgb Conc. 34.8 g/dL (32.0-36.0); Mean Corpuscular Volume 82.9 fL (80.0-100.0); Monocytes # (auto) 0.7 10 ^3/uL (0-1.3); Monocytes % (auto) 7.5 % (0.0-12.0); Neutrophils % (auto) 81.1 % (37.0-80.0); Nucleated Red Blood Cells % 0.1 %; Red Blood Cells 3.54 10^6/uL (4.0-5.20); White Blood Cell 9.8 10^3/uL (4.4-10.8)
[2021-10-12 07:24] LABS: BUN/Creatinine Ratio 14.1; Calcium 7.3 mg/dL (8.5-10.1); Potassium 5.3 mmol/L (3.5-5.1)
[2021-10-12] MEDS: levoFLOXacin 250MG 50 ML IV SCH (08:22)
[2021-10-12] MEDS: ASPirin 81 mg TAB PO SCH (08:22)
[2021-10-12] MEDS: FLORASTOR (S. BOULARDII) 250 MG CAP PO SCH ×2 (08:22→21:27)
[2021-10-12] MEDS: CALCIUM W/VIT D (600MG/400IU) TAB PO SCH ×2 (08:22→17:51)
[2021-10-12] MEDS: FLUCONAZOLE 200MG/100ML 100 ML IV SCH ×2 (08:23→11:47)
[2021-10-12] MEDS ORDERED: DEXTROSE (50%) 50ML SYRG IV PRN (09:15)
[2021-10-12 09:19] VITALS: BP 150/85
[2021-10-12] MEDS: HYDROcodone-ACET 5/325MG TAB PO PRN ×2 (11:30→18:18)
[2021-10-12] MEDS: ONDANSETRON HCL 4 MG/2 ML VIAL IV PRN (11:30)
[2021-10-12] MEDS: hydrALAZINE HCL 20 MG/ML VL IV PRN (13:34)
[2021-10-12] MEDS: metroNIDAZOLE 500MG/100ML 100 ML IV SCH ×5 (14:02→23:35)
[2021-10-12 14:38] VITALS: BP 151/77
[2021-10-12 17:04] VITALS: BP 139/72
[2021-10-12] MEDS ORDERED: levoFLOXacin 250MG 50 ML IV ONE (18:00)
[2021-10-12 20:00] VITALS: BP 151/77
[2021-10-12] MEDS: ATORVASTATIN 20 MG TAB PO SCH (21:28)
[2021-10-12 22:00] VITALS: BP 136/75
[2021-10-12] MEDS ORDERED: InsuLIN REG 1unit/0.01ml Soln (100units/ml) SC SCH (22:00)
[2021-10-12] MEDS: INSULIN LANTUS (GLARGINE) 1 /0.01ml (100units/ml) SC SCH (23:54)
[2021-10-13] MEDS: PANTOPRAZOLE 40mg/50ML NS AE 50 ML IV SCH ×3 (00:13→10:08)
[2021-10-13] MEDS: HYDROcodone-ACET 5/325MG TAB PO PRN ×2 (04:14→05:38)
[2021-10-13] MEDS: OCTREOTIDE ACETATE 500 MCG in SODIUM CHL 0.9% 99 ML IV SCH (04:53)
[2021-10-13 05:00] VITALS: BP 145/73
[2021-10-13] MEDS: POTASSIUM CHLORIDE 40 MEQ in D5W 5% 1,000 ML IV SCH (06:00)
[2021-10-13] MEDS: InsuLIN REG 1unit/0.01ml Soln (100units/ml) SC SCH ×2 (06:05→13:00)
[2021-10-13] MEDS: SUCRALFATE 1 GM/10 ML ORAL SUSP PO SCH ×2 (06:43→13:00)
[2021-10-13] MEDS: VANCOMYCIN HCL 125MG/5ML ORAL SOL PO SCH (06:43)
[2021-10-13] MEDS: ACCU-CHEK COMFORT CURVE STRIP VI SCH (06:44)
[2021-10-13] MEDS ORDERED: levoFLOXacin 500MG 100 ML IV SCH (10:00)
[2021-10-13] MEDS: FLUCONAZOLE 200MG/100ML 100 ML IV SCH ×2 (10:06→10:16)
[2021-10-13] MEDS: CALCIUM W/VIT D (600MG/400IU) TAB PO SCH (10:06)
[2021-10-13] MEDS: FLORASTOR (S. BOULARDII) 250 MG CAP PO SCH (10:07)
[2021-10-13] MEDS: ASPirin 81 mg TAB PO SCH (10:07)
[2021-10-13 13:00] VITALS: BP 140/78
== END 2021-10-13 17:15 | disposition home or self-care (01) | DRG 720 ==
LOC: ER 05:10 → TELE 13:48 → CENTRAL 10-08 12:29 → TELE-CENTR 10-08 22:59
PROVIDERS: ADMIT Hospitalist; ATTEND Family Medicine
PROC: 05HY33Z Insertion of Infusion Device into Upper Vein, Percutaneous Approach (ICD-10-PCS; principal; 2021-09-29)
PROC: 5A1955Z Respiratory Ventilation, Greater than 96 Consecutive Hours (ICD-10-PCS; 2021-09-29)
PROC: 0BH17EZ Insertion of Endotracheal Airway into Trachea, Via Natural or Artificial Opening (ICD-10-PCS; 2021-09-29)
PROC: 30233R1 Transfusion of Nonautologous Platelets into Peripheral Vein, Percutaneous Approach (ICD-10-PCS; 2021-09-30)
PROC: 30233N1 Transfusion of Nonautologous Red Blood Cells into Peripheral Vein, Percutaneous Approach (ICD-10-PCS; 2021-10-10)
PROC: 0DB98ZX Excision of Duodenum, Via Natural or Artificial Opening Endoscopic, Diagnostic (ICD-10-PCS; 2021-10-11)
PROC: 0DB88ZX Excision of Small Intestine, Via Natural or Artificial Opening Endoscopic, Diagnostic (ICD-10-PCS; 2021-10-11)
PROC: 0DB68ZX Excision of Stomach, Via Natural or Artificial Opening Endoscopic, Diagnostic (ICD-10-PCS; 2021-10-11)
PROC: 0DB38ZX Excision of Lower Esophagus, Via Natural or Artificial Opening Endoscopic, Diagnostic (ICD-10-PCS; 2021-10-11)
DX: A41.9 Sepsis, unspecified organism (principal); J96.01 Acute respiratory failure with hypoxia; R65.21 Severe sepsis with septic shock; G04.90 Encephalitis and encephalomyelitis, unspecified; E11.10 Type 2 diabetes mellitus with ketoacidosis without coma; K22.11 Ulcer of esophagus with bleeding; G93.41 Metabolic encephalopathy; J18.9 Pneumonia, unspecified organism; Z20.822 Contact with and (suspected) exposure to COVID-19; N17.9 Acute kidney failure, unspecified; N18.4 Chronic kidney disease, stage 4 (severe); E11.40 Type 2 diabetes mellitus with diabetic neuropathy, unspecified; D64.9 Anemia, unspecified; E86.0 Dehydration; E87.5 Hyperkalemia; N39.0 Urinary tract infection, site not specified; D69.59 Other secondary thrombocytopenia; E78.5 Hyperlipidemia, unspecified; E87.0 Hyperosmolality and hypernatremia; K76.6 Portal hypertension; K74.69 Other cirrhosis of liver; J98.11 Atelectasis; B18.2 Chronic viral hepatitis C; K29.70 Gastritis, unspecified, without bleeding; D62 Acute posthemorrhagic anemia; E11.22 Type 2 diabetes mellitus with diabetic chronic kidney disease; F17.200 Nicotine dependence, unspecified, uncomplicated; I12.9 Hypertensive chronic kidney disease with stage 1 through stage 4 chronic kidney disease, or unspecified chronic kidney disease; Z79.82 Long term (current) use of aspirin; Z99.11 Dependence on respirator [ventilator] status; Z79.899 Other long term (current) drug therapy; Z91.19 Patient's noncompliance with other medical treatment and regimen; Z88.0 Allergy status to penicillin
CPT/HCPCS: 36415; 36600; 43239; 70450; 71045; 74176; 76705; 80048; 80053; 80061; 80074; 80307; 81001; 82010; 82140; 82270; 82570; 82607; 82805; 82962; 83036; 83540; 83550; 83605; 83615; 83690; 83735; 83880; 83930; 83970; 84100; 84132; 84156; 84300; 84443; 84484; 84550; 85007; 85014; 85018; 85025; 85027; 85379; 85610; 85730; 86038; 86850; 86900; 86901; 86920; 87040; 87045; 87070; 87077; 87086; 87205; 87426; 87427; 87493; 93005; 93970; 94002; 94003; 95819; 96361; 96372; 96374; 96375; 97110; 97116; 97163; 97530; 99291; C9113; G0378; J0330; J1450; J1815; J1956; J2001; J2185; J2250; J2405; J2704; J3490; J7042; J7060